=== PATIENT | male | born 1970 | race Caucasian/White ===

== ENCOUNTER → 2021-09-18 12:54 | Outpatient (BNVA) | payer SELFPAY | PROVIDERS: Visit Provider Physician Assistant Medical | DX: Z02.79 Encounter for issue of other medical certificate (principal) ==

== ENCOUNTER → 2023-09-25 07:53 | Outpatient (BNVA) | payer SELFPAY | PROVIDERS: Visit Provider Internal Medicine | DX: Z02.79 Encounter for issue of other medical certificate (principal) ==